=== PATIENT | female | born 1965 ===

== ENCOUNTER 2025-04-06 09:55 | Outpatient (REF) | payer OTHER, SELFPAY ==
--- OUTSIDE RECORDS SUMMARY | 2025-04-06 07:56 | XMS_ITS | Encounter Summary ---
Author Organization [facility] Address [address] [place] [address] Care Team Providers Care Photo Tube Assembler Name Role Phone Chris To Primary Care Provider [phone] Reason for Referral * Diagnostic Imaging (Routine) - Closed Specialty Diagnoses / Procedures Referred By Ginette colbert Referred To Contact Diagnoses Left hip impingement syndrome Procedures [place] Arthrogram Hip Left Balwinder Pearson PA [address] [place] [id number] Phone: tel: fax: Referral ID Status Reason Start Date Expiration Date Visits Re quested Visits Authorized [id number] Closed 03/31/2025 09/30/2026 1 1 Reason for Visit * Diagnostic Imaging (Routine) - Closed Specialty Diagnoses / Procedures Referred By Ginette colbert Referred To Contact Diagnoses Left hip impingement syndrome Procedures [place] Arthrogram Hip Left Balwinder Pearson PA [address] [place] [id number] Phone: tel: fax: Referral ID Status Reason Start Date Expiration Date Visits Re quested Visits Authorized [id number] Closed 03/31/2025 09/30/2026 1 1 Encounter Details Date Type Department Care Team (Latest Contact Info) Description 04/06/2025 7:56 AM EDT - 04/06/2025 11:59 PM EDT Hospital Encounter [facility] Xray [address] [place], [place] [id number] Left hip impingement syndrome Discharge Disposition: Home or Self Care (01) Social History Tobacco Use Types Packs/Day Years Used Date Smoking Tobacco: Never Smokeless Tobacco: Never Comments:: Alcohol Use Standard Drinks/Week Comments Yes 0 (1 standard drink = 0.6 oz pur e alcohol) socially Comments Unknown Sex and Gender Information Value Date Recorded Sex Assigned at Not on file Legal Sex Female 3:52 AM EDT Gender Identity Female 03/04/2025 1:30 PM EDT Sexual Orientation Lesbian or Vaughn 03/04/2025 1: 30 PM EDT documented as of this encounter Medications at Time of Discharge baclofen (LIORESAL) 10 mg tablet 01/07/2019 HYDROcodone-aceta minophen (NORCO) 5-325 mg tablet Take 1 tablet by mouth every 6 hours as needed for pain (Only at night if needed). ibuprofen (MOTRIN) 600 mg tablet Take 600 mg by mouth every 6 hours as needed for pain (prn). prazosin (MINIPRESS) 1 mg capsule 12/29/2021 sertraline (ZOLOFT) 50 mg tablet 01/07/2019 traZODone (DESYREL) 50 mg tablet 01/07/2019 documented as of this encounter Miscellaneous Notes * Post-Procedure Note - YVETTE Carter - 04/06/2025 8:15 AM EDT PROCEDURE: Fluoroscopic guided conventional left hip arthrogram. ATTENDING: Dr. Reyes, the Attending physician, was available for assistance throughout the entire procedure. DIRECT CARE WORKER: YVETTE Carter SEDATION: None DURATION: 20 minutes MEDICATIONS: 1% Lidocaine, 0.1 mL Dotarem (0.1 mL in 10 mL saline) Contrast: Omni 300; 6 mL TECHNIQUE: The risks, benefits, and alternatives of the procedure (including bleeding, infection, and contrast reaction) were explained to the patient. All questions answered, and written informed consent was obtained. The patient was then placed supine on the fluoroscopy table and a suitable site for needle insertion was marked using fluoroscopic guidance. The left hip was prepped and draped in the usual sterile fashion. Approximately 3 mL of 1% lidocaine was used for skin, subcutaneous and deep soft tissue anesthesia.Under intermittent fluoroscopic guidance from an anterior approach, a 22 gauge spinal needle was inserted into the left hip joint. The total of 12 mL of one-to-one mixture of dilute Dotarem and Omnipaque 300 was injected. The needle was then removed and a dry sterile bandage applied. The patient tolerated the procedure well and there were no apparent complications. The patient was given instructions on post-arthrogram care. The patient was then transported to the MR suite for further imaging. FINDINGS: Injection of contrast outlined a smooth, normal volume joint. IMPRESSION: Fluoroscopic guided conventional left hip arthrogram, without immediate complication, as described above. documented in this encounter Plan of Treatment Not on file documented as of this encounter Procedures * Due to [place] [employer] law, this organization might not be sharing negative HIV tests. Procedure Name Priority Date/Time Associated Diagnosis Comments FL ARTHROGRAM HIP LEFT Routine 04/06/2025 9:03 AM EDT Left hip impingement syndrome documented in this encounter Results * Due to [place] [employer] law, this organization might not be sharing negative HIV tests. * FL Arthrogram Hip Left (04/06/2025 9:03 AM EDT) Anatomical Region Laterality Modality Lower Extremities, Hip Left Radio Flu oroscopy Impressions 04/06/2025 9:24 AM EDT Fluoroscopic guided conventional left hip arthrogram, without immediate complication, as described above. Narrative 04/06/2025 9:24 AM EDT PROCEDURE: Fluoroscopic guided conventional left hip arthrogram. ATTENDING: Dr. Reyes, the Attending physician, was available for assistance throughout the entire procedure. DIRECT CARE WORKER: YVETTE Carter SEDATION: None DURATION: 20 minutes MEDICATIONS: 1% Lidocaine, 0.1 mL Dotarem (0.1 mL in 10 mL saline) Contrast: Omni 300; 6 mL TECHNIQUE: The risks, benefits, and alternatives of the procedure (including bleeding, infection, and contrast reaction) were explained to the patient. All questions answered, and written informed consent was obtained. The patient was then placed supine on the fluoroscopy table and a suitable site for needle insertion was marked using fluoroscopic guidance. The left hip was prepped and draped in the usual sterile fashion. Approximately 3 mL of 1% lidocaine was used for skin, subcutaneous and deep soft tissue anesthesia. Under intermittent fluoroscopic guidance from an anterior approach, a 22 gauge spinal needle was inserted into the left hip joint. The total of 12 mL of one-to-one mixture of dilute Dotarem and Omnipaque 300 was injected. The needle was then removed and a dry sterile bandage applied. The patient tolerated the procedure well and there were no apparent complications. The patient was given instructions on post-arthrogram care. The patient was then transported to the MR suite for further imaging. FINDINGS: Injection of contrast outlined a smooth, normal volume joint. us Balwinder CRAWFORD Jaun FLUOROSCOPY PROCEDURE S Final Result documented in this encounter Visit Diagnoses Diagnosis Left hip impingement syndrome documented in this encounter Administered Medications Inactive Administered Medications - up to 3 most recent administrations Medication Order MAR Action Action Date Dose Rate Site iohexoL (OMNIPAQUE) 300 mg iodine/mL injection 7 mL 7 mL, intra-articular, Once in imaging, contrast, Imaging, Starting on 04/06/25 at 0902, 1 dose, Until 04/06/25 at 0904, Imaging Protocol Orders Given 04/06/2025 9:04 AM EDT 7 mL documented in this encounter Care Teams Photo Tube Assembler Relationship Specialty Start Date End Date Chris To [address] [place] [address] PCP - General 04/18/17 documented as of this encounter
== END 2025-04-06 09:56 | disposition home or self-care (01) ==
LOC: HO.HOSX 09:55
PROVIDERS: Visit Provider Physician Assistant
DX: Z13.89 Encounter for screening for other disorder (principal)